=== PATIENT | male | born 1955 | race Caucasian/White ===

== ENCOUNTER 2016-05-12 23:56 | Emergency (ER) | payer MEDICARE, MEDICAID ==
--- NOTE | 2016-05-18 13:18 | ER ---
ADMIT: 05/12/2016 RM/LOC: ER [facility] MR#: [id number] [address] [place] [place], [place] [address] JOHN DURAN [address] [address] Emergency Room Report SEX: M AGE: 60 : 1955 DATE: 05/12/2016 HISTORY OF PRESENT ILLNESS: John Duran with a history of CHF, COPD, asthma, gout, who came to the ER with chief complaint of chest congestion and increased wheezing and mild shortness of breath comparing to baseline. The patient also complains of coughing which is dry. The patient states he uses nebulizer twice at home which mildly touched the shortness of breath. The patient denies any fever at home and denies any chest pain. PHYSICAL EXAMINATION: VITAL SIGNS: The patient had O2 saturation of 91% to 92% on room air. HEAD AND NECK: Noncontributory. Trachea midline. LUNGS: Bilateral wheezing without any crackles in the lungs. HEART: Normal S1, S2. ABDOMEN: Soft. The rest of the physical examination is noncontributory. DIAGNOSTIC DATA: Chest x-ray did not show any infiltration or any acute changes. EMERGENCY DEPARTMENT COURSE: The patient received breathing treatment with DuoNeb nebulizer and also Decadron shot 10 mg IM. EKG showed normal sinus rhythm with a rate of 101. After breathing treatment and Decadron, O2 saturation became 94% to 95% on room air. The patient states he feels better and he wants to go back home. The patient has close followup with the primary care doctor. The patient was discharged home with a prescription for prednisone for 5 days. The patient had no colorful sputum or fever, and at this stage did not feel necessary to prescribe any antibiotics. The patient has nebulizer at home. Paul Cabrera MD/ juventino JOB #: [id number] CC: Paul Cabrera MD, Attending Physician
== END 2016-05-13 02:45 | disposition home or self-care (01) ==
LOC: ER 23:56
DX: J44.9 Chronic obstructive pulmonary disease, unspecified (principal); F17.210 Nicotine dependence, cigarettes, uncomplicated; Z88.8 Allergy status to other drugs, medicaments and biological substances; Z79.82 Long term (current) use of aspirin; Z79.01 Long term (current) use of anticoagulants; Z79.899 Other long term (current) drug therapy

== ENCOUNTER 2016-05-16 20:35 | Inpatient (IN) | payer MEDICARE, MEDICAID ==
[~2016-05-16] VITALS: Ht 175.3 cm; Wt 100.8 kg
--- NOTE | 2016-05-17 20:02 | ER ---
ADMIT: 05/17/2016 RM/LOC: [address] [facility] MR#: [id number] 2620 [facility] [address] [place], [place] [address] JOHN DURAN [address] [address] Emergency Room Report SEX: M AGE: 60 : 1955 DATE: 05/16/2016 CHIEF COMPLAINT: Shortness of breath. HISTORY OF PRESENT ILLNESS: The patient is a 60-year-old male with COPD with nocturnal O2, complains of increasing hypoxemia and oxygen demands for the past 4 days, was here on the , given steroids without antibiotics. Denies any fevers, chills, chest pain, nausea, vomiting, or diarrhea. PAST MEDICAL HISTORY: Illnesses: Coronary artery disease, status post non- STEMI; CHF; type 2 diabetes with oral and insulin; hypertension; COPD with O2 at night; hyperlipidemia; GERD; chronic low back pain with spinal stenosis and cervical syrinx; bipolar; restless leg; gout; degenerative disk and joint disease; low vitamin D; hypothyroid; hypogonadism; and peripheral neuropathy. ALLERGIES: TO OXYCONTIN. MEDICATIONS: Please see nurse's MAR. SOCIAL HISTORY: , disabled aircraft sheet metal mechanic, lives alone, smokes 1/2 pack per day at least. No alcohol or drugs. FAMILY HISTORY: Negative per chart review. REVIEW OF SYSTEMS: A 12-point review of systems negative for all other systems, illnesses, or operations except as outlined above. PHYSICAL EXAMINATION: VITAL SIGNS: Temp 96.9, pulse 102, respiratory rate 20, BP 135/74, SaO2 of 95% on room air. GENERAL: Disheveled, obese, nontoxic without jaundice or icterus. HEENT: Normocephalic. No evidence of epistaxis, rhinorrhea, or otorrhea. NECK: Supple without lymphadenopathy or thyromegaly. CHEST: Breath sounds equal and diminished with expiratory wheeze noted throughout. HEART: Tachycardic. Regular without murmur, gallop, or edema. ABDOMEN: Obese, nontender, and nondistended without mass or megaly. Bowel sounds hypoactive. EXTREMITIES: No evidence of Homans sign, synovitis, or dermatitis. NEURO: EOMI. PERRLA. No evidence of drift, dysarthria, or ataxia. Gait assisted, using wheelchair and walker at baseline according to the patient. MENTAL STATUS: Alert, oriented, and cooperative without delusions, hallucinations, or abnormal thought content. MEDICAL DECISION MAKING: The patient was given stack DuoNeb, total of 6 during his 5-1/2 hour evaluation, Solu-Medrol 125, magnesium 2 g and ultimately required BiPAP, which the patient was reluctant to concede to, did require Xanax 0.25 mg sublingual for mask intolerance, increase the O2 demands at 8 L. reveal blood gas, pH of 7.245, pCO2 of 59, PO2 of 78. Initial lactic acid 4.9, subsequent lactic acid after 1500 mL fluid 3.4. The patient refused ADMIT: 05/17/2016 RM/LOC: [address] [facility] MR#: [id number] [address] [address] [place] [address] Emergency Room Report SEX: M AGE: 60 : 1955 any further fluid resuscitation. Hemoglobin 13.5. Glucose 338. CRP 0.94. Procalcitonin less than 0.05. Troponin less than 0.015. D-dimer 0.26. BNP 105. INR 1.04. UA negative. Blood cultures are pending. EKG showed sinus tachycardia, unchanged from 05/12/2016. Shortly after finishing initial DuoNeb, SoluMedrol and magnesium developed right arm weakness, therefore, acute stroke was possibility and CT head was normal, patient returned from CT with complete resolution of symptoms and back to baseline. Chest x-ray showed no evidence of pneumonia. COPD findings were noted. CTA of the chest showed no evidence of pulmonary emboli, pneumonia, or pneumothorax. The patient was initially loaded with Levaquin 500 mg orally in hopes of discharge as well as a 10-day prednisone taper. The patient was unable to get himself out of the wheelchair into his van, was therefore returned to Emergency Department for admission. Discussed findings and disposition with Dr. Sotelo, who agreed and requested ICU to call for orders. Due to patients presentation, findings and disposition 60 minutes of critical care is warranted. DIAGNOSES: 1. Acute exacerbation of chronic obstructive pulmonary disease associated with hypoxemia and atper-pw-zubkmtf respiratory failure. 2. Chronic physical debilitation. 3. Chronic pain syndrome. 4. Type 2 diabetes. RECOMMENDATION: Admit inpatient ICU for Dr. Leyva. ADMISSION AND DISCHARGE CONDITION: Stable. The patient states he is a full code. Manfred He MD/ scottl JOB #: [id number] CC: Sulma Leyva MD, Attending Physician Sulma Leyva MD, Family Physician Sulma Leyva MD
[2016-05-18] MEDS ORDERED: KLONOPIN2 MG PO (15:55)
[2016-05-18] MEDS ORDERED: SEROQUEL200 MG PO (15:55)
[2016-05-18] MEDS ORDERED: REQUIP DPS2 MG PO (15:56)
[2016-05-18] MEDS ORDERED: FENOFIBRATE48 MG PO (15:56)
[2016-05-18] MEDS ORDERED: LYRICA150 MG PO (15:56)
[2016-05-18] MEDS ORDERED: GLUCOPHAGE1000 MG PO (15:56)
[2016-05-18] MEDS ORDERED: CHEST CONGESTI400 MG PO (15:56)
[2016-05-18] MEDS ORDERED: LASIX DPS40 MG PO (15:57)
[2016-05-18] MEDS ORDERED: ZYLOPRIM-DPS300 MG PO (15:57)
[2016-05-18] MEDS ORDERED: ASA325 MG PO (15:57)
[2016-05-18] MEDS ORDERED: MS CONTIN DPS60 MG PO (15:58)
[2016-05-18] MEDS ORDERED: THERA-M1 EACH PO (15:58)
[2016-05-18] MEDS ORDERED: MOBIC15 MG PO (15:58)
[2016-05-18] MEDS ORDERED: SYMBICORT160 MCG/6 IH (15:59)
[2016-05-18] MEDS ORDERED: SYNTHROID DPS0.1 MG PO (15:59)
[2016-05-18] MEDS ORDERED: VITAMIN D2400 UNIT PO (15:59)
[2016-05-18] MEDS ORDERED: SYNTHROID DP0.125 MG PO (15:59)
[2016-05-18] MEDS ORDERED: VIBRAMYCIN-DPS100 M2 PO (16:00)
[2016-05-18] MEDS ORDERED: ACETYLCYST100 MG/1 M IH (16:00)
[2016-05-18] MEDS ORDERED: LANTUS100 UNITS/ SQ (16:00)
[2016-05-18] MEDS ORDERED: DUONEB DPS3 ML IH (16:00)
[2016-05-18] MEDS ORDERED: NOVOLOG100 UNIT/2 SQ (16:00)
[2016-05-18] MEDS ORDERED: NICODERM CQ1 EAC1 TD (16:01)
[2016-05-18] MEDS ORDERED: DELTASONE DPS20 MG PO (16:01)
--- NOTE | 2016-05-20 11:58 | DS ---
ADMIT: 05/17/2016 RM/LOC: 315 [facility] MR#: [id number] 2620 [facility] [address] [place], [place] [address] JOHN DURAN [address] [address] Discharge Summary SEX: M AGE: 60 : 1955 ADMISSION DATE: 05/17/2016 DISCHARGE DATE: 05/18/2016 DISCHARGE DIAGNOSES: 1. Acute hypoxemic and hypercarbic respiratory failure. 2. Right arm weakness, resolved. 3. Severe COPD (chronic obstructive pulmonary disease) with acute exacerbation. 4. Diastolic CHF (congestive heart failure) acute. 5. Diabetes mellitus type 2, poorly controlled. 6. Tobacco use. 7. Chronic venous stasis and PVD (peripheral vascular disease) ulcer. 8. Hypertension. 9. Chronic constipation. 10.Spinal cord syrinx. 11.Chronic osteomyelitis. 12.B12 deficiency. 13.Insomnia. 14.Depression. 15.Hyperlipidemia. 16.Lumbar spinal stenosis. 17.Restless legs syndrome. 18.History of coronary artery disease with previous HI (myocardial infarction). 19.Vitamin D deficiency. HOSPITAL COURSE: The patient was admitted. Was given IV Lasix. Was given BiPAP for respiratory support. He made quite a bit of improvement over the next 24 hours. He was feeling better and really wanted to go home. He was up ambulating. He was on his regular home oxygen requirement. He did feel like he had to cough up some mucus that needed to come up he was unable to get up. However, overall he was doing well. The plan was for the patient to be discharged home. DISCHARGE MEDICATIONS: 1. Aspirin 325 p.o. daily. 2. Klonopin 2 mg p.o. at bedtime. 3. Lyrica 300 p.o. b.i.d. 4. Meloxicam 1500 mg p.o. daily. 5. MS Contin 60 mg p.o. b.i.d. 6. Requip 2 mg p.o. at bedtime. 7. Seroquel 200 mg p.o. at bedtime. 8. Synthroid 225 mcg p.o. daily. 9. Fenofibric acid 45 mg p.o. daily. ADMIT: 05/17/2016 RM/LOC: 315 [facility] MR#: [id number] 2620 [facility] [address] [place], [place] [address] HARSHADMaggie JOHN [address] [place] [address] Discharge Summary SEX: M AGE: 60 : 1955 10.Vitamin D 04863 units Justin, Thursday, Thursday. 11.Allopurinol 600 mg p.o. daily. 12.Dulera. 13.DuoNeb. 14.Lantus 30 units subcutaneous daily. 15.NovoLog 15 units with meals. 16.Doxycycline 100 mg p.o. b.i.d. x7 days. 17.Prednisone 20 mg p.o. daily x7 days. 18.NicoDerm 21 mcg changed daily x1 month. DISCHARGE INSTRUCTIONS: Otherwise, follow up with Dr. Leyva later this month. Continue home oxygen. Sulma Leyva MD/ josiane JOB #: [id number] CC: Sulma Leyva MD, Attending Physician Sulma Leyva MD, Family Physician
--- NOTE | 2016-05-23 12:50 | HP ---
ADMIT: 05/17/2016 RM/LOC: 315 [facility] MR#: [id number] [address] [place] [address] [place], [place] [address] JOHN DURAN [address] [address] History and Physical SEX: M AGE: 60 : 1955 DATE OF SERVICE: CHIEF COMPLAINT: Shortness of breath. HISTORY OF PRESENT ILLNESS: The patient is a 6-year-old gentleman with past medical history of COPD, tobacco abuse, diabetes, CHF, presents to [facility] with complaints of shortness of breath and cough, going on about the last week. This even necessitated an emergency room visit on the of this month where he received a couple nebulizers and was discharged home with prednisone burst and taper with plans to follow up with his primary care doctor. The patient just noted progression. His symptoms became progressively worse. He denied any chest pain, any new edema, or any weight gain. The sputum was mostly whitish in color, but no new wheezing was noted. In the emergency room, he was initially noted to meet sepsis criteria. He was given a fluid bolus and after about 1300 mL, became short of breath. He also had received magnesium, Decadron, and six nebulized treatments. With his increased shortness of breath, he went to CT scanner and had a PE study done that showed no central pulmonary embolism, but did note pulmonary edema. There was no consolidation noted. Also around this time, he had abrupt onset of right-sided arm weakness. It was transient in nature from about 2250 to about 2255. He underwent CT scan of the head that showed no bleed, fracture, or mass. At that time, his NIH stroke score was around 3 and he is admitted for further evaluation and treatment and seeing the patient in the ICU, he notes his shortness of breath is better. He complains about the BiPAP mask and the dryness in his mouth. Currently denying any chest pain. PAST MEDICAL HISTORY: On chart review shows, hypertension, COPD, chronic hypoxic respiratory failure, using chronic oxygen, chronic constipation, history of colon polyps, type 2 diabetes, hypothyroidism, testicular hypofunction, polyneuropathy, noted spinal cord syrinx, chronic osteomyelitis of the right fibula undergoing wound care, rotator cuff syndrome, B12 deficiency, history of neck pain, insomnia, depression, hyperlipidemia, lumbar spinal stenosis, restless legs syndrome, ongoing tobacco abuse, vitamin D deficiency, history of coronary disease with prior MA, history of multiple pressure ulcers, currently seeing wound Care. ALLERGIES: INCLUDE OXYCODONE, METHADONE, AND ALDACTONE CURRENT MEDICATIONS: 1. Seroquel. 2. Fenofibrate. 3. Clonazepam. 4. Metformin. 5. Lyrica. 6. Requip. 7. Allopurinol. 8. Aspirin. 9. Lasix. 10.Morphine. ADMIT: 05/17/2016 RM/LOC: 315 [facility] MR#: [id number] [address] [address] [place] [address] History and Physical SEX: M AGE: 60 : 1955 11.Meloxicam. 12.Vitamin D. 13.Symbicort. 14.Synthroid. 15.Mucomyst. 16.NovoLog. 17.Lantus. 18.DuoNeb. FAMILY HISTORY: Noncontributory. SOCIAL HISTORY: Currently smoking less than a half pack per day, hopes to quit, not a current drinker, , disabled. REVIEW OF SYSTEMS: As noted above, all systems reviewed and are negative. PHYSICAL EXAMINATION: VITAL SIGNS: Temp was 96.9, respirations 20, pulse 102, MAP of 88, blood pressure 135/74, and sat 95%. GENERAL: This is an obese gentleman. He is in no apparent distress. He is awake. He is alert. He is oriented x3. He is a cooperative. HEENT: Normocephalic and atraumatic. His mucous membranes are little dry. NECK: Supple. LUNGS: May be few crackles towards the bases bilaterally, otherwise, I do not hear any wheezes right now. I do not hear any rhonchi. HEART: His heart is a little tachy, but regular. I do not hear any obvious murmurs. ABDOMEN: Soft, nontender, and nondistended. Positive bowel sounds throughout. EXTREMITIES: Trace edema. His right leg from his ankle up to right below his knee is dressed with an Unna boot. Dressing was not removed at this time. NEUROLOGIC EXAM: He has good strength, is 4+/5 equal and symmetric bilaterally. Good cargo broker strengths were noted. There is no obvious pronator drift noted. I do not notice any cranial nerve abnormalities. LABORATORY DATA: His lab work is reviewed. His blood gas showed a pH 7.24, pCO2 of 59, PO2 of 79, sodium 139, potassium 5.1, BUN is 31, creatinine 1.2. His CO2 was 25, hemoglobin is 13.5, white count 9.6. Troponin was less than 0.015. BNP was 105, mag was 2. CT scan of the head showed no bleed, no fracture, and no mass. CT scan of the chest showed no central pulmonary embolism. Did notice pulmonary edema, peribronchial cuffing. He had no consolidation or airspace disease that was noted. EKG shows sinus tach at 120. I do not notice any acute ST or T-wave segment changes. Normal axis. Normal intervals. ADMIT: 05/17/2016 RM/LOC: 315 [facility] MR#: [id number] [address] [address] JOHN DURAN [address] [place] [address] History and Physical SEX: M AGE: 60 : 1955 ASSESSMENT AND PLAN: 1. Dyspnea with pulmonary edema. 2. Acute on chronic hypoxic respiratory failure. 3. Respiratory acidosis. 4. Chronic obstructive pulmonary disease with exacerbation. 5. Transient right arm weakness, suspect transient ischemic attack. 6. Diabetes mellitus type 2. 7. History of coronary disease. 8. Ongoing tobacco abuse. 9. Chronic right ankle wound. At this point, the patient states he is feeling better. He does not like the BiPAP a great deal when we rechecked the blood gas. His CT showed pulmonary edema, but it was really only after he got a big fluid bolus. We are going to diurese him a little bit and hopefully we will be able to get him off the BiPAP if his blood gas looks better. He has week of slowly progressive symptoms without weight gain and edema with cough and dyspnea to be consistent with a COPD exacerbation. So, we will treat him with steroids and antibiotics and aggressive pulmonary toilet and go from there. We discussed smoking cessation. As far as his right-sided weakness certainly seems suspicious for TIA, he had just received a Big Mag bolus at that time, certainly transient elevated mag levels could certainly cause that, but that would be strange to be unilateral. He received an aspirin. CT scan of the head and spine. We will consider further TIA workup, certainly does have multiple vascular risk factors. We will have him on sliding scale insulin for right now. With his chronic right ankle wound, we will have him followed by wound care and we will follow him very closely in the ICU. Conner Sotelo MD/ juventino JOB #: [id number] CC: Sulma Leyva, Attending Physician Sulma Leyva, Family Physician
== END 2016-05-18 12:33 | disposition home or self-care (01) | DRG 291 ==
LOC: ER 20:35 → 3ICU 05-17 02:45
PROVIDERS: ADMIT Internal Medicine
DX: I11.0 Hypertensive heart disease with heart failure (principal); J96.21 Acute and chronic respiratory failure with hypoxia; E87.2 Acidosis; E11.51 Type 2 diabetes mellitus with diabetic peripheral angiopathy without gangrene; M86.661 Other chronic osteomyelitis, right tibia and fibula; E11.42 Type 2 diabetes mellitus with diabetic polyneuropathy; J96.22 Acute and chronic respiratory failure with hypercapnia; J44.1 Chronic obstructive pulmonary disease with (acute) exacerbation; G45.9 Transient cerebral ischemic attack, unspecified; L97.319 Non-pressure chronic ulcer of right ankle with unspecified severity; I50.31 Acute diastolic (congestive) heart failure; E11.65 Type 2 diabetes mellitus with hyperglycemia; E11.622 Type 2 diabetes mellitus with other skin ulcer; K59.00 Constipation, unspecified; E11.69 Type 2 diabetes mellitus with other specified complication; M10.9 Gout, unspecified; E29.1 Testicular hypofunction; G89.4 Chronic pain syndrome; F31.9 Bipolar disorder, unspecified; F17.210 Nicotine dependence, cigarettes, uncomplicated; E53.8 Deficiency of other specified B group vitamins; G47.00 Insomnia, unspecified; E78.5 Hyperlipidemia, unspecified; M48.06 Spinal stenosis, lumbar region; G25.81 Restless legs syndrome; I25.10 Atherosclerotic heart disease of native coronary artery without angina pectoris; I25.2 Old myocardial infarction; E55.9 Vitamin D deficiency, unspecified; Z79.4 Long term (current) use of insulin; Z99.81 Dependence on supplemental oxygen; Z79.82 Long term (current) use of aspirin